=== PATIENT | female | born 1955 | race Caucasian/White ===

== ENCOUNTER 2017-03-21 15:39 | Emergency (ER) | payer MEDICARE ==
[~2017-03-21] VITALS: Ht 157.5 cm; Wt 55.9 kg
[~2017-03-21 15:39] MED LIST: Advair 250/50 Diskus IH; HYDROCHLOROTH12.5 M3; Habitrol,Nicoderm CQ TD; Levaquin PO; MEDROL DOSEPAK4 MG PO; NAPROSYN500 MG PO; NORCO 5/3251 TABLET PO; Proventil,Ventolin H IH; ROBITUSSIN AC,T10 ML PO; SPIRIVA1 INHALATI IH; ZITHROMAX Z-PA250 MG PO
[2017-03-21 16:16] LABS: HEMATOCRIT 36.4 % (36.0-46.0); MCH 30.9 PG (29.0-34.0); MCHC 34.3 G/DL (30.0-36.0); MCV 89.9 FL (83-99); MEAN PLAT.VOLUME 10.7 uM^3 (9.5-12.4); PLATELET COUNT 252 K/uL (156-360); RBC DIS.WIDTH-CV 12.9 % (11.8-14.6); RBC DIS.WIDTH-SD 42.7 % (39-53); RED BLOOD COUNT 4.05 M/uL (3.80-5.20); WHITE BLOOD COUNT 11.4 K/uL (4.1-10.2)
[2017-03-21 16:23] LABS: CHLORIDE 104 mEq/L (99-109); POTASSIUM 4.1 mEq/L (3.7-5.4); SODIUM 137 mEq/L (136-147)
[2017-03-21 16:26] LABS: ANION GAP 10 MEQ/L (2-14); GLUCOSE 100 mg/dL (70-99)
[2017-03-21 16:29] LABS: GFR ESTIMATE (CALCULATED) > 59 mL/min/
[2017-03-21 16:30] LABS: UREA NITROGEN (BUN) 27 mg/dL (9-23)
[2017-03-21 17:00] LABS: TROP-I INTERPRETATION NEGATIVE; TROPONIN-I < 0.01 ng/mL (0.0-0.30)
[2017-03-21 19:44] LABS: TROP-I INTERPRETATION NEGATIVE; TROPONIN-I < 0.01 ng/mL (0.0-0.30)
[2017-03-21 20:33] VITALS: BP 145/75
== END 2017-03-21 20:34 | disposition home or self-care (01) ==
LOC: EME 15:39
PROVIDERS: Nurse Practitioner Family
DX: R07.9 Chest pain, unspecified (principal); R06.02 Shortness of breath; M54.9 Dorsalgia, unspecified; R91.1 Solitary pulmonary nodule; I10 Essential (primary) hypertension; J44.9 Chronic obstructive pulmonary disease, unspecified; F17.200 Nicotine dependence, unspecified, uncomplicated
CPT/HCPCS: 71020; 80048; 84484; 85027; 93005; 99281; 99283